=== PATIENT | male | born 1990 ===

== ENCOUNTER 2021-03-15 20:34 | Outpatient (REF) | payer MEDICAID, SELFPAY ==
[2021-03-15 21:37] LABS: Hemoglobin A1C 5.4 % (<5.7)
[2021-03-15 21:48] LABS: ALT 55 U/L (16-63); AST 47 U/L (15-37); Albumin 4.2 g/dL (3.4-5.0); Alkaline Phosphatase 116 U/L (46-116); Anion Gap 9.8 mmol/L (3-11); BUN 15 mg/dL (7-18); Bilirubin, Total 0.5 mg/dL (0.2-1.0); CO2 26.2 mmol/L (21.0-32.0); Calcium 9.3 mg/dL (8.5-10.1); Calculated LDL 129 mg/dL (<100); Chloride 103 mmol/L (98-107); Cholesterol 211 mg/dL (<200); Glucose 69 mg/dL (74-106); HDL Cholesterol 43 mg/dL (40-60); Potassium 4.7 mmol/L (3.5-5.1); Sodium 139 mmol/L (136-145); Total Protein 7.6 g/dL (6.4-8.2); Triglyceride 196 mg/dL (<150)
[2021-03-17 09:05] LABS: HBs Antibody, Quant 69.4 mIU/mL (See Note); Hepatitis B Surface Ab Positive (See Note)
[2021-03-17 11:04] LABS: Varicella IgG Antibody Positive (See Note)
== END 2021-03-15 20:35 | disposition home or self-care (01) ==
LOC: NCHCN 20:34
PROVIDERS: PCP Nurse Practitioner Family; Visit Provider Nurse Practitioner Family
DX: Z00.00 Encounter for general adult medical examination without abnormal findings (principal); Z13.89 Encounter for screening for other disorder; E66.9 Obesity, unspecified
CPT/HCPCS: 80053; 80061; 86706; 86787; 83036